=== PATIENT | male | born 1960 | race Caucasian/White ===

== ENCOUNTER 2021-09-05 09:36 | Emergency (ER) | payer OTHER ==
[~2021-09-05] VITALS: Ht 183.5 cm; Wt 161.4 kg
[2021-09-05 10:34] LABS: BASOPHILS % (AUTO) 0.5 % (0-1); EOSINOPHILS % (AUTO) 0 % (0-6); HEMOGLOBIN 17.6 g/dl (14.0-17.9); LYMPHOCYTES # (AUTO) 0.4 X10'3 (1.1-4.8); LYMPHOCYTES % (AUTO) 9.3 % (21-51); MEAN CORPUSCULAR HGB CONC 35.2 g/dL (33.0-36.5); MEAN CORPUSCULAR VOLUME 93.9 FL (78-98); MEAN PLATELET VOLUME 8.6 FL (7.4-10.4); MONOCYTES # (AUTO) 0.5 X10'3 (0-0.9); MONOCYTES % (AUTO) 12.2 % (2-12); NEUTROPHILS # (AUTO) 3.4 X10'3 (1.8-7.7); PLATELET COUNT 135 X10'3 (140-440); RED BLOOD COUNT 5.33 X10'6 (4.70-6.10); RED CELL DISTRIBUTION WIDTH 13.4 % (11.5-14.5); WHITE BLOOD COUNT 4.3 X10'3 (4.5-11.0)
[2021-09-05 10:50] LABS: ALANINE AMINOTRANSFERASE 33 U/L (12-78); ALBUMIN 3.2 G/DL (3.4-5.0); ALBUMIN/GLOBULIN RATIO 0.7 (1.1-1.5); ALKALINE PHOSPHATASE 58 IU/L (46-116); ANION GAP 10 (8-16); ASPARTATE AMINO TRANSFERASE 44 U/L (10-37); BILIRUBIN,TOTAL 0.7 MG/DL (0.1-1.0); BLOOD UREA NITROGEN 11 MG/DL (7-18); BUN/CREATININE RATIO 13.8 (5.4-32.0); CALCIUM 8.4 MG/DL (8.5-10.1); CHLORIDE 102 MMOL/L (99-107); GLUCOSE 125 MG/DL (70-104); POTASSIUM 3.4 MMOL/L (3.5-5.1); SODIUM 138 MMOL/L (135-145); TOTAL CARBON DIOXIDE 26.3 MMOL/L (24-32); TOTAL PROTEIN 7.6 G/DL (6.4-8.2); eGFR > 90 ML/MIN
[2021-09-05] MEDS ORDERED: dexamethasone sod phosphate 10mg/ml inj IV STA (11:17)
[2021-09-05 11:25] LABS: C-REACTIVE PROTEIN 4.32 MG/DL (0.0-0.5); LACTATE DEHYDROGENASE 299 U/L (85-227)
[2021-09-05 11:30] LABS: FERRITIN 2097 NG/ML (26-388)
--- NOTE | 2021-09-05 11:43 | NUR ---
called pharmacy for meds.
[2021-09-05] MEDS ORDERED: CASIRIVIMAB/IMDEVIMAB inject. 10 ML in normal saline 100ml IV soln 100 ML IV ONE (12:20)
[2021-09-05] MEDS ORDERED: dexamethasone 6 MG in NS 50ml IV soln IV ONE (12:30)
--- NOTE | 2021-09-05 12:52 | NUR ---
called pharmacy for pt miriam med as per mattie from pharmacy it is going to take 15 mins.
[2021-09-05] MEDS ORDERED: DEXA6TAB6 PO (13:28)
--- NOTE | 2021-09-05 13:57 | NUR ---
o2 saturation at rest 93 % on ra. with ambulation spo2 88 % on ra ,recover sat 93 % on 2l .
--- NOTE | 2021-09-05 14:00 | NUR ---
nick case management social worker here at nurses station for o2 authorization.
--- NOTE | 2021-09-05 15:14 | NUR ---
pt waiting for the ride back home ,spoke to pt daughter mary and informed that pt can't leave in taxi its not safe as per md orders,as per daughter her aunt bridgette is coming from [facility] to pickling machine operator pt .
--- NOTE | 2021-09-05 16:28 | NUR ---
call jose pt daughter at [phone].
[2021-09-05 17:39] VITALS: BP 152/90
== END 2021-09-05 17:45 | disposition home or self-care (01) ==
LOC: ER 09:36
DX: U07.1 COVID-19 (principal); R42 Dizziness and giddiness; I10 Essential (primary) hypertension; Z79.899 Other long term (current) drug therapy
CPT/HCPCS: 36415; 71045; 80053; 82728; 83615; 84145; 85025; 85384; 86140; 87635; 93005; 96365; 99285; C9803; J1100; M0243; Q0244